=== PATIENT | male | born 1980 | race Hispanic/Latino ===

== ENCOUNTER 2021-08-22 19:00 | Emergency (ER) | payer SELFPAY ==
[2021-08-22] MEDS ORDERED: Ketorolac Tromethamine 30 MG/ML VIAL ONE (20:25)
[2021-08-22] MEDS ORDERED: Morphine 4 MG/ML VIAL ONE (20:25)
== END 2021-08-22 21:13 | disposition home or self-care (01) ==
LOC: ERS 19:00
DX: M54.42 Lumbago with sciatica, left side (principal)
CPT/HCPCS: 96372; 99283; J1885; J2270